=== PATIENT | female | born 1945 | race Two or more races ===

== ENCOUNTER 2025-04-15 22:03 | Inpatient (IN) | payer MEDICARE, BC ==
[~2025-04-15] VITALS: Ht 142.2 cm; Wt 71.4 kg
[2025-04-15 22:35] LABS: PLATELET COUNT (AUTO) 279 K/uL (150-450); RED BLOOD CELL COUNT(AUTO) 4.97 MIL/uL (4.0-5.2); RED CELL DISTRIBUTION WIDTH 16.3 % (11.5-15.0); WHITE BLOOD COUNT (AUTO) 7.0 K/uL (4.3-11.0)
[2025-04-15 22:39] LABS: CALCIUM, SERUM 8.6 mg/dL (8.5-10.1); CREATININE 0.7 mg/dL (0.6-1.3); SODIUM SERUM 142 mmol/L (136-145); UREA NITROGEN, BLOOD 24 mg/dL (7-18)
[2025-04-15] MEDS ORDERED: ASPIRIN 325 MG TABLET ONE (23:05)
[2025-04-15 23:09] VITALS: O2SAT 96
[2025-04-15] MEDS: ALBUTEROL FS 2.5 MG/0.5 ML VIAL.NEB NEB ONE (23:09)
[2025-04-15] MEDS: ASPIRIN 325 MG TABLET PO ONE (23:09)
[2025-04-15] MEDS ORDERED: ALBUTEROL FS 2.5 MG/0.5 ML VIAL.NEB ONE (23:13)
[2025-04-15 23:20] VITALS: O2SAT 100; O2SAT 99
[2025-04-16] MEDS ORDERED: IV NS 0.9% 1,000 ML IV PRN (01:00)
[2025-04-16] MEDS ORDERED: ACETAMINOPHEN 325 MG TABLET PO PRN (01:00)
[2025-04-16] MEDS ORDERED: MAG HYDROX/AL HYDROX/SIMETH 30 ML UDC PO PRN (01:00)
[2025-04-16] MEDS ORDERED: ONDANSETRON HCL/PF 4 MG/2 ML VIAL IVP PRN (01:00)
[2025-04-16] MEDS ORDERED: Z GUARD REMEDY 4 OZ OINT TP PRN (01:00)
[2025-04-16] MEDS ORDERED: MAGNESIUM HYDROXIDE 30 ML UDC PO PRN (01:00)
[2025-04-16] MEDS: ENOXAPARIN SODIUM 40 MG/0.4 ML DISP.SYRIN SQ SCH (02:00)
[2025-04-16] MEDS ORDERED: ENOXAPARIN SODIUM 40 MG/0.4 ML DISP.SYRIN SQ ONE (02:02)
[2025-04-16 03:04] VITALS: BP 153/95; TEMP 97.3; O2SAT 96
[2025-04-16 09:00] VITALS: BP 153/95; TEMP 97.3; O2SAT 96
[2025-04-16] MEDS: ASPIRIN 81 MG TAB.CHEW PO SCH (09:00)
[2025-04-16] MEDS ORDERED: ROSU20TA2 PO (09:26)
[2025-04-16] MEDS ORDERED: AMIO200T5 PO (09:26)
[2025-04-16] MEDS ORDERED: METO25TA4 PO (09:26)
[2025-04-16] MEDS ORDERED: IRBE75TA11 PO (09:26)
[2025-04-16] MEDS ORDERED: APIX5TAB PO (09:26)
== END 2025-04-16 11:26 | disposition left against medical advice (07) | DRG 282 ==
LOC: ER 22:48 → TELE 04-16 02:07
PROVIDERS: ADMIT Internal Medicine; ATTEND Internal Medicine
DX: I16.1 Hypertensive emergency (principal); I21.A1 Myocardial infarction type 2; I10 Essential (primary) hypertension; Z95.0 Presence of cardiac pacemaker; Z79.01 Long term (current) use of anticoagulants; Z79.899 Other long term (current) drug therapy; I48.91 Unspecified atrial fibrillation; E87.5 Hyperkalemia
CPT/HCPCS: 36415; 70450-TC; 71045-TC; 80048-TC; 84484-TC; 85025-TC; G0378; J1650